=== PATIENT | male | born 1955 | race Caucasian/White ===

== ENCOUNTER 2025-05-23 12:47 | Emergency (ER) | payer OTHER ==
[~2025-05-23] VITALS: Ht 175.3 cm; Wt 85.0 kg
[2025-05-23 12:52] VITALS: O2SAT 96
[2025-05-23 14:26] LABS: CLARITY URINE TURBID (CLEAR); COLOR URINE ORANGE (YELLOW); GLUCOSE URINE 3+ (NEGATIVE); KETONES URINE NEGATIVE (NEGATIVE); LEUKOCYTE ESTERASE URINE 2+ (NEGATIVE); NITRITE URINE POSITIVE (NEGATIVE); OCCULT BLOOD URINE 3+ (NEGATIVE); PH URINE 5.5 (4.5-8.0); PROTEIN URINE 2+ (NEGATIVE); SPECIFIC GRAVITY URINE 1.019 (1.005-1.030); UROBILINOGEN URINE 0.2 E.U./dL (0.2-1.0)
[2025-05-23] MEDS ORDERED: TOPUD MT (14:58)
[2025-05-23] MEDS ORDERED: TAMS-54 MT (14:58)
[2025-05-23] MEDS ORDERED: SULF1TAB48 MT (15:03)
[2025-05-23 15:33] LABS: FINE GRANULAR CASTS URINE 0-5 /lpf; RBC URINE 15-25 /hpf (0-2); SQUAMOUS EPITHELIAL CELL URINE FEW /lpf (RARE/1+); WBC URINE 15-25 /hpf (0-2)
[2025-05-23 15:40] LABS: BACTERIA URINE 3+
[2025-05-23 16:34] VITALS: BP 153/81; PULSE 78; RESP 18; TEMP 36.7; O2SAT 97
== END 2025-05-23 16:46 | disposition home or self-care (01) ==
LOC: ER 12:47
DX: R33.9 Retention of urine, unspecified (principal); N39.0 Urinary tract infection, site not specified; I10 Essential (primary) hypertension; Z79.899 Other long term (current) drug therapy; Z98.890 Other specified postprocedural states; N40.1 Benign prostatic hyperplasia with lower urinary tract symptoms
CPT/HCPCS: 81003; 87086; 87186; 87077; 51702; 99284; Z7610 ×2; 99283